=== PATIENT | male | born 1980 | race Caucasian/White ===

== ENCOUNTER 2019-12-20 09:10 | Outpatient (CLI) | payer SELFPAY ==
[2019-12-23 08:29] LABS: COVID-19 RT-PCR Result Negative (Negative)
== END 2019-12-20 09:30 ==
PROVIDERS: PCP Nurse Practitioner Family; Visit Provider Nurse Practitioner Family
DX: Z11.59 Encounter for screening for other viral diseases (principal)
CPT/HCPCS: U0003

== ENCOUNTER 2021-06-17 08:43 | Outpatient (REF) | payer MEDICAID, SELFPAY ==
[2021-06-17 15:23] LABS: BUN 18 mg/dL (7-18); CO2 29.5 mmol/L (21.0-32.0); Calcium 9.2 mg/dL (8.5-10.1); Calculated LDL 106 mg/dL (<100); Chloride 98 mmol/L (98-107); Cholesterol 178 mg/dL (<200); Glucose 102 mg/dL (74-106); HDL Cholesterol 37 mg/dL (40-60); Potassium 4.1 mmol/L (3.5-5.1); Triglyceride 176 mg/dL (<150)
[2021-06-17 17:02] LABS: Anion Gap 15.5 mmol/L (3-11); Sodium 143 mmol/L (136-145)
== END 2021-06-17 08:44 | disposition home or self-care (01) ==
LOC: NCHCN 08:43
PROVIDERS: PCP Nurse Practitioner Family; Visit Provider Physician Assistant
DX: Z00.00 Encounter for general adult medical examination without abnormal findings (principal)
CPT/HCPCS: 80048; 80061